=== PATIENT | male | born 1960 | race Caucasian/White ===

== ENCOUNTER 2016-05-27 07:13 | Day surgery (SDC) | payer BC ==
--- NOTE | 2016-05-27 06:42 | History and Physical Report ---
DATE OF EVALUATION: 05/27/2016. CHIEF COMPLAINT AND HISTORY OF CHIEF COMPLAINT: This patient presents with a history of intractable cervical radiculitis. Due to the failure of all therapies and the lack of surgical options after surgical evaluation suggested no surgery, he is here for an implanted spinal catheter infusion trial with hydromorphone to determine if the implantation of a permanent system can be of any value in pain control. PAST MEDICAL HISTORY: Parkinson's disease, headaches. REVIEW OF SYSTEMS: The patient seems appropriate and in no acute distress. The remainder of the systems review shows glasses, degenerative arthritis, fibromyalgia, depression, difficulty sleeping. SOCIAL HISTORY: Caffeine. FAMILY HISTORY: Asthma, hypertension, cancer, cerebrovascular disease. PAST SURGICAL HISTORY: None listed. EMPLOYMENT STATUS: Not identified. ALLERGIES: None. MEDICATIONS ON ADMISSION: To be provided. PHYSICAL EXAMINATION: General: Height is 5 feet, 7 inches. Weight is 135 pounds. Vital Signs: Blood pressure is 140/80. Musculoskeletal: Current examination shows the primary area of pain to be head , neck, shoulder, and arms bilaterally. Diagnostics confirm diffuse spondylosis and disc abnormalities from 3-4 to 6-7. Sensory guerra are intact. Neurologic: Cranial nerves are intact. IMPRESSION: CERVICAL RADICULITIS, ICD10 CODE M54.13. PLANS: This patient is here for an implanted spinal catheter infusion trial with hydromorphone to determine if the implantation of a permanent system can be of any value in pain control. The potential risks, side effects, and complications, including spinal trauma injury, nerve root injury, and spinal headache, have all been discussed and reviewed in detail. The patient understands all of the potential risks, side effects, and complications and has agreed and consented. The procedure will be considered outpatient, although an overnight stay will be evaluated. An epidural blood patch will be necessary. Jared Figueroa D.O. Date Time JOB NUMBER: [id number] cc: Jose Contreras
[~2016-05-27 07:13] MED LIST: ACETAMINOPHEN 1000MG/100 ML PREMIX IV ONE; CEFAZOLIN 2 Gram 50 ML IVPB ONE; FAMOTIDINE 20MG TABLET PO ONE; HYDROMORPHONE HCL IV ONE; HYDROMORPHONE HCL/PF 0.002 MG in 0.9 % SODIUM CHLORIDE 10ML VIA 0.998 ML IV ONE; MECLIZINE 25 MG TABLET PO ONE; METOCLOPRAMIDE 10 MG TABLET PO ONE; SODIUM CHLORIDE 0.9% IV ONE
[2016-05-27] MEDS ORDERED: METOCLOPRAMIDE HCL 10 MG/2 ML VIAL IVP PRN (10:34)
[2016-05-27] MEDS ORDERED: DIPHENHYDRAMINE HCL IV 50 MG/ML VIAL IVP PRN ×2 (10:34)
[2016-05-27] MEDS ORDERED: OXYCODONE/APAP 10MG-325MG TABLET PO PRN (10:34)
[2016-05-27] MEDS ORDERED: HYDROMORPHONE HCL 1 MG/ML CPJ IM PRN (10:34)
[2016-05-27] MEDS ORDERED: DIPHENHYDRAMINE HCL 25 MG CAPSULE PO PRN ×2 (10:34)
[2016-05-27] MEDS ORDERED: METOCLOPRAMIDE 10 MG TABLET PO PRN (10:34)
[2016-05-27] MEDS ORDERED: HYDROCODONE/APAP 7.5/325MG TABLET PO PRN ×2 (10:34)
[2016-05-27] MEDS ORDERED: AL HYDROX/MAG HYDROX 30ML UD PO PRN (10:34)
[2016-05-27] MEDS ORDERED: TEMAZEPAM 15 MG CAPSULE PO PRN ×2 (10:34)
[2016-05-27] MEDS ORDERED: SENNOSIDES/DOCUSATE SODIUM UD CAPSULE PO PRN ×2 (10:34)
[2016-05-27] MEDS ORDERED: NALOXONE 0.4 MG/1 ML VIAL IVP PRN (10:34)
[2016-05-27] MEDS ORDERED: ACETAMINOPHEN 325 MG TAB PO PRN ×2 (10:34)
[2016-05-27] MEDS ORDERED: PROPOFOL 10 MG/ML VIAL IV ONE (14:00)
[2016-05-27] MEDS ORDERED: LABETALOL HCL 5MG/ML, 20ML VIAL SIVP ONE (14:00)
[2016-05-27] MEDS ORDERED: MIDAZOLAM HCL 2MG/2ML VIAL IV ONE (14:00)
[2016-05-27] MEDS ORDERED: DEXAMETHASONE 4 MG/ML 1ML VIAL IVP ONE (14:00)
[2016-05-27] MEDS ORDERED: LIDOCAINE 1% W/EPI 1:200,000 MPF 30ML SQ ONE ×2 (14:00)
[2016-05-27] MEDS ORDERED: KETAMINE HCL 10 MG/ML (20ML) VIAL *PACU IV ONE (14:00)
[2016-05-27] MEDS ORDERED: LIDOCAINE 2% MDV (20MG/ML) 20ML VIAL IV ONE (14:00)
[2016-05-27] MEDS ORDERED: CEFAZOLIN 1G VIAL IM ONE (14:00)
[2016-05-27] MEDS ORDERED: HYDROMORPHONE HCL 2 MG/ML VIAL IV ONE ×3 (14:00)
[2016-05-27] MEDS ORDERED: BUPIVACAINE 0.5% W/EPI MPF 30 ML VIAL IVP ONE ×2 (14:00)
[2016-05-27] MEDS ORDERED: METOPROLOL TART 5 MG/5 ML VIAL IV ONE (14:00)
[2016-05-27] MEDS ORDERED: FENTANYL PF 100MCG/2ML VIAL IV ONE ×3 (14:00)
[2016-05-27] MEDS: RINGERS SOLUTION,LACTATED 1,000 ML IV SCH ×2 (14:21→20:19)
[2016-05-27] MEDS: SUCRALFATE 1 G/10 ML UD PO SCH ×2 (14:22→17:24)
[2016-05-27] MEDS: OXYCODONE/APAP 10MG-325MG TABLET PO PRN ×2 (16:11→20:15)
[2016-05-27] MEDS: CEFAZOLIN 2 Gram 50 ML IVPB SCH (16:31)
--- NOTE | 2016-05-27 17:22 | Operative Note ---
PAIN SERVICE OPERATIVE REPORT DATE OF PROCEDURE: 05/27/2016. SURGEON: Jared Figueroa D.O. PREOPERATIVE DIAGNOSIS: INTRACTABLE CERVICAL RADICULITIS, ICD10 CODE M54.13. PROCEDURE: 1. Fluoroscopically guided access spinal space at L1-2, placement of thin- walled spinal catheter at C6-7. 2. Diagnostic myelography with radiologic supervision and interpretation. 3. Spinal opioid bolus of hydromorphone 0.002 mg, spinal space. 4. Incision, subcutaneous dissection, and anchoring of spinal catheter to the supraspinous fascia using anchoring device and nonabsorbable suture. 5. Incision, subcutaneous dissection, and creation of small pouch at left flank. 6. Tunneling of spinal catheter to flank pouch. Revise and intersect catheter to second catheter component with connector. Secondary catheter component tunneled superior 6.0 cm exiting skin. 7. Interface external catheter to external infusion pump set to deliver hydromorphone at 0.04 mg per day. 8. Closure of midline spinal catheter incision with Vicryl for the fascia and running subcuticular Vicryl for the skin. Closure of flank incision with nylon suture. 9. Epidural blood patch at L2-3, 20 mL of autologous blood drawn with sterile technique, left antecubital. 10. Dressings placed, securing catheter and all connections under sterile dressing. 11. The patient was transported to the recovery room flat with a pillow under the head and knees, stable, showing no side effects from the procedure or the sedation. ANESTHESIA: Local sedation. ANESTHESIA PROVIDER: Jay Stout CRNA. INDICATIONS: This patient presents with a history of intractable cervical radiculitis. His diagnostic studies show extensive and diffuse multilevel spondylosis and disc abnormalities. Surgical evaluation had indicated the abnormalities are too extensive for surgical intervention. He has had pain clinic treatments at multiple locations and had some issues relative to medications. Due to the failure of all therapies and other related complications from treatment, he is here for an intraspinal infusion trial with hydromorphone with a cervically placed catheter. He understands all of the potential risks, side effects, and complications including spinal headache and nerve root trauma. DESCRIPTION OF PROCEDURE: Intravenous line, vital sign monitoring by Anesthesia with the patient prone on the table. Sterile prep and sterile technique and under imaging. Due to extensive spurring and arthritic change, access to the spinal space was limited to 12-1 or 1-2. At 1-2, the lowest option, the skin was infiltrated. A 20-gauge spinal needle with a paramedian approach and a beveled long axis was inserted into the spinal space. With cerebrospinal fluid flow, a thin-walled spinal catheter was advanced. The initial catheter motion appeared to be slightly inferior and to the right. The catheter was retracted. The needle was slightly retracted and then reinserted and directed along the midline to C6-7. Diagnostic myelography was performed. The resulting flow characteristics confirmed appropriate flow characteristics in the spinal space and confirmed the catheter tip position. A bolus of hydromorphone 0.002 mg was given into the spinal space. The skin above the level of the needle was infiltrated. An incision was made and subcutaneous dissection was conducted to the supraspinous fascia. The needle was removed and the catheter was anchored to the fascia with an anchoring device and nonabsorbable suture. A small pouch left of the midline was then infiltrated with local. An incision was made and subcutaneous dissection was conducted to form a pouch. A tunneling tool was used to carry the external part of the spinal catheter into the flank pouch. The spinal catheter was then interfaced with a second catheter component by way of a connector. The second catheter component was tunneled superior, approximately 6.0 cm above this flank pouch. The externalized catheter was interfaced to an external pump and set to deliver hydromorphone at 0.04 mg per day. The midline spinal catheter incision was closed with Vicryl with a running subcuticular Dermabond closure. The flank incision was closed with nylon suture. Appropriate dressings were placed securing the incisions, catheter, and all connections under sterile dressing. At L2-3, which was a difficult access point , with an 18-gauge Tuohy needle, this was then accessed. Simultaneously 20 mL of autologous blood was drawn by sterile technique from the left antecubital. The epidural blood patch was then performed at this level with this blood. The needle was removed. The site was reinforced. The dressing was reinforced. He was turned supine, flat, and transported out of the room with a pillow under the head and knees. He was stable, showing no side effects from the procedure. We will monitor and evaluate and at some point consider a possible overnight stay or discharge. DISCHARGE INSTRUCTIONS: 1. The patient is to resume standard medications, reducing analgesics as tolerated. Take an antibiotic with Levaquin 500 mg once a day for 14 days. 2. Diet is unchanged. 3. Spinal opioid side effects including respiratory depression, nausea, vomiting, constipation, urinary retention, lightheadedness, and rash were all discussed and reviewed. If these happen, contact the clinic or go to the local emergency room. 4. The patient will be seen in the office in three to five days to evaluate the sites and possibly increase the spinal infusion. 5. All other instructions were provided including numbers to contact and problems given. At that point the patient will be discharged in the morning. Jared Figueroa D.O. Date Time JOB NUMBER: [id number] cc: Jose Contreras
--- NOTE | 2016-05-27 19:31 | Operative Note ---
PAIN SERVICE OPERATIVE REPORT DATE OF PROCEDURE: 05/27/2016. PREOPERATIVE DIAGNOSES: 1. INTRACTABLE LUMBAR RADICULITIS. 2. IMPLANTED SPINAL CATHETER INFUSION TRIAL WITH HYDROMORPHONE WITH NERVE ROOT IRRITATION, LEFT ILIOINGUINAL. PROCEDURES: 1. Fluoroscopically guided incision, subcutaneous dissection, and removal of indwelling spinal catheter. 2. Incision, subcutaneous dissection, and removal of externalized catheter interfaced to pump. SURGEON: Jared Figueroa D.O. ANESTHESIA: Local sedation. ANESTHESIA PROVIDER: Jay Stout CRNA INDICATIONS: This is a patient with an implanted spinal catheter infusion trial started within the last four hours. Although intraoperatively he appeared to be fine, postoperatively in the recovery room he developed a left ilioinguinal pain pattern which was quite intense. He was given intravenous corticosteroid and intravenous opioids with little control. He showed no lower extremity involvement and moved his extremities bilaterally freely and easily. The pain appeared to be ilioinguinal. Because the insertion was at L1-2 with the proximity to the ilioinguinal nerve component at L1, it was felt that this could be a high probability nerve root irritation. For that reason, it was felt appropriate to remove the catheter and to treat him medically until stable and then re-evaluate a repeat procedure. DESCRIPTION OF PROCEDURE: Intravenous line, vital sign monitoring, and IV sedation. Prepped and draped with sterile technique. The patient was positioned prone. Under imaging, the previous incision at the midline was opened after the suture was cut. The anchor to the implanted catheter was cut. A pursestring suture was placed, and the implanted catheter was removed intact. The radiopaque tip was identified. At the left flank, a site for an externalized catheter interface, the skin was infiltrated. The suture was cut and the externalized catheter was removed intact. Antibiotic irrigation to both sites. The incisions were then closed with Vicryl to the fascia and running subcuticular Vicryl for the skin. He was transported to the recovery room stable. DISCHARGE INSTRUCTIONS: 1. The patient will remain in house overnight for pain control and management. As explained to his relative, nerve root irritations can takes days to weeks to heal. He will be medically stable and medication managed for his discharge to home. We will evaluate him over the next 24 to 48 hours. If dischargeable in the morning, he will be discharged on appropriate oral medications. 2. His sites will remain clean and dry. Dermabond dressing was used. He will be evaluated in the office in five to seven days. 3. All other instructions were provided including numbers to contact and problems given. 4. The situation was carefully explained to his relative. We will monitor and evaluate this conservatively. If necessary, an MRI will be performed to evaluate other possible sources, depending on his level of improvement or worsening symptoms, over the next 24 to 48 hours. aJred Figueroa D.O. Date Time JOB NUMBER: [id number] cc: Jose Contreras
[2016-05-27] MEDS: HYDROMORPHONE HCL 2 MG/ML VIAL IM PRN (21:22)
[2016-05-27] MEDS ORDERED: GABAPENTIN 100 MG CAPSULE PO SCH (22:00)
[2016-05-28] MEDS: CEFAZOLIN 2 Gram 50 ML IVPB SCH ×2 (00:50→08:05)
[2016-05-28] MEDS: OXYCODONE/APAP 10MG-325MG TABLET PO PRN ×3 (00:52→09:15)
[2016-05-28] MEDS: RINGERS SOLUTION,LACTATED 1,000 ML IV SCH (01:54)
[2016-05-28] MEDS: HYDROMORPHONE HCL 2 MG/ML VIAL IM PRN (06:07)
[2016-05-28] MEDS ORDERED: GABAPENTIN 100 MG CAPSULE PO SCH (08:00)
[2016-05-28] MEDS: SUCRALFATE 1 G/10 ML UD PO SCH (09:05)
--- NOTE | 2016-06-01 09:12 | RADIOLOGY REPORT ---
EXAM: AP THORACIC SPINE, SINGLE VIEW HISTORY: POST PAIN PUMP TRIAL WITH CATHETER IMPLANT. TECHNIQUE: AP supine portable view of the thoracic spine was obtained. Comparison: None. FINDINGS: There is some faint catheter like density seen overlying the left upper quadrant of the abdomen. There is probably a very faint catheter then extending up the spine and there is a tiny metallic dot at the approximate C7 level which may correspond to the superior extent of the presumed intraspinal catheter. Correlation with the specifics of the procedure itself suggested. There is some spurring noted in the spine. IMPRESSION: 1. TINY METALLIC DOT AT THE LEVEL OF THE C7 VERTEBRA PRESUMABLY CORRESPONDS TO THE SUPERIOR EXTENT OF AN INTRASPINAL CATHETER AND CLINICAL CORRELATION WITH THE PROCEDURE ITSELF SUGGESTED. 2. DEGENERATIVE CHANGE IN THE THORACIC AND UPPER LUMBAR SPINE. JOB NUMBER: [id number] [facility]
== END 2016-05-28 09:30 | disposition home or self-care (01) ==
LOC: SUR 07:13 → MEDSURG 14:11 → SUR 05-28 09:30
PROVIDERS: ATTEND Pain Medicine Interventional Pain Medicine
DX: M54.13 Radiculopathy, cervicothoracic region (principal); T85.840A Pain due to nervous system prosthetic devices, implants and grafts, initial encounter; G20 Parkinson's disease
CPT/HCPCS: 72020; 62350; 00630 ×2; 62355; Q9967; J1170 ×4; J3010; J0690; J7040; J7120

== ENCOUNTER 2016-07-15 09:23 | Day surgery (SDC) | payer BC ==
--- NOTE | 2016-07-15 07:20 | History and Physical Report ---
DATE OF EVALUATION: 07/14/2016. CHIEF COMPLAINT AND HISTORY OF CHIEF COMPLAINT: This patient presents with a history of intractable cervical radiculitis. He is here for a spinal infusion device trial with an implanted spinal catheter with hydromorphone. A previous trial on 05/27/2016 had to be discontinued because of nerve root irritation. PAST MEDICAL HISTORY: Parkinson's disease, headaches, cervical radiculitis. REVIEW OF SYSTEMS: The patient seems appropriate and in no acute distress. The remainder of the systems review shows glasses, degenerative arthritis, fibromyalgia, depression, difficulty sleeping. SOCIAL HISTORY: Caffeine. FAMILY HISTORY: Asthma, hypertension, cancer, cerebrovascular disease. PAST SURGICAL HISTORY: None identified. ALLERGIES: None. MEDICATIONS ON ADMISSION: To be provided. PHYSICAL EXAMINATION: General: Height is 5 feet, 7 inches. Weight is 121 pounds. Vital Signs: Previous blood pressure was 140/80. HEENT: Within normal limits. Lungs: Clear. Heart: Regular rate and rhythm. Abdomen: Nontender. Musculoskeletal: Examination of the musculoskeletal system shows diffuse tenderness throughout the cervical spine. Range of motion does seem to produce pain throughout the neck, shoulder, and arms bilaterally. Neurologic: Cranial nerves are intact. IMPRESSIONS: INTRACTABLE CERVICAL RADICULITIS, ICD10 CODE M54.13. PLANS: This patient is here for an implanted spinal catheter infusion trial with hydromorphone. Based on the first trial, we will modify our approach. Ultimately the goal is to position the catheter at C7-T1 for an infusion to the cervical as well as thoracic nervous system. The potential risks, side effects , and complications including repeat nerve root injury have been discussed and provided in detail. He was given the appropriate information from the housing manager which discusses all of the potential risks, side effects, and complications. The patient and his family member have been interviewed. All of the potential risks have been discussed, and everyone understands. The patient consents and wants to move forward as quickly as possible. We will consider this an overnight stay because of the history. The dural puncture and spinal catheter placement will require an epidural blood patch. Jared Figueroa D.O. Date Time JOB NUMBER: [id number] cc: Jose Contreras
[~2016-07-15 09:23] MED LIST changes: -HYDROMORPHONE HCL IV ONE; -HYDROMORPHONE HCL/PF 0.002 MG in 0.9 % SODIUM CHLORIDE 10ML VIA 0.998 ML IV ONE; +HYDROMORPHONE PF 2MG/ML AMP 0.004 MG in 0.9 % SODIUM CHLORIDE 10ML VIA 0.998 ML IV ONE; +HYDROMORPHONE PF 2MG/ML AMP 2 MG in 0.9 % SODIUM CHLORIDE 500ML 499 ML IV ONE; -SODIUM CHLORIDE 0.9% IV ONE
[2016-07-15] MEDS ORDERED: OXYCODONE/APAP 10MG-325MG TABLET PO PRN (12:45)
[2016-07-15] MEDS ORDERED: METOCLOPRAMIDE HCL 10 MG/2 ML VIAL IVP PRN (12:45)
[2016-07-15] MEDS ORDERED: DIPHENHYDRAMINE HCL IV 50 MG/ML VIAL IVP PRN ×2 (12:45)
[2016-07-15] MEDS ORDERED: AL HYDROX/MAG HYDROX 30ML UD PO PRN (12:45)
[2016-07-15] MEDS ORDERED: SENNOSIDES/DOCUSATE SODIUM UD CAPSULE PO PRN ×2 (12:45)
[2016-07-15] MEDS ORDERED: TEMAZEPAM 15 MG CAPSULE PO PRN ×2 (12:45)
[2016-07-15] MEDS ORDERED: NALOXONE 0.4 MG/1 ML VIAL IVP PRN (12:45)
[2016-07-15] MEDS ORDERED: METOCLOPRAMIDE 10 MG TABLET PO PRN (12:45)
[2016-07-15] MEDS ORDERED: HYDROCODONE/APAP 7.5/325MG TABLET PO PRN ×2 (12:45)
[2016-07-15] MEDS ORDERED: DIPHENHYDRAMINE HCL 25 MG CAPSULE PO PRN ×2 (12:45)
[2016-07-15] MEDS ORDERED: ACETAMINOPHEN 325 MG TAB PO PRN ×2 (12:45)
[2016-07-15] MEDS ORDERED: RINGERS SOLUTION,LACTATED 1,000 ML IV PRN (13:45)
[2016-07-15] MEDS ORDERED: LIDOCAINE 1% W/EPI 1:200,000 MPF 30ML SQ ONE (14:48)
[2016-07-15] MEDS ORDERED: CEFAZOLIN 1G VIAL IM ONE (14:48)
[2016-07-15] MEDS ORDERED: BUPIVACAINE 0.5% W/EPI MPF 30 ML VIAL IVP ONE (14:48)
[2016-07-15] MEDS: RINGERS SOLUTION,LACTATED 1,000 ML IV SCH (15:29)
[2016-07-15] MEDS: HYDROMORPHONE HCL 1 MG/ML CPJ IM PRN ×2 (15:41→20:44)
[2016-07-15] MEDS ORDERED: *PACU ONLY* KETAMINE HCL 10 MG/ML (20ML) VIAL IV ONE (16:13)
[2016-07-15] MEDS ORDERED: PROPOFOL 10 MG/ML VIAL IV ONE (16:13)
[2016-07-15] MEDS ORDERED: FENTANYL PF 100MCG/2ML VIAL IV ONE (16:13)
[2016-07-15] MEDS ORDERED: MIDAZOLAM HCL 2MG/2ML VIAL IV ONE (16:13)
[2016-07-15] MEDS ORDERED: DEXMEDETOMIDINE HCL 200 MCG/2 ML VIAL IV ONE (16:13)
[2016-07-15] MEDS ORDERED: DEXAMETHASONE 4 MG/ML 1ML VIAL IVP ONE (16:13)
[2016-07-15] MEDS: OXYCODONE/APAP 10MG-325MG TABLET PO PRN ×2 (18:00→22:46)
[2016-07-15] MEDS: CEFAZOLIN 2 Gram 50 ML IVPB SCH (18:00)
[2016-07-16] MEDS: RINGERS SOLUTION,LACTATED 1,000 ML IV SCH ×2 (00:16→06:37)
[2016-07-16] MEDS: HYDROMORPHONE HCL 2 MG/ML VIAL IM PRN ×2 (01:22→06:36)
[2016-07-16] MEDS: CEFAZOLIN 2 Gram 50 ML IVPB SCH ×4 (01:25→09:34)
[2016-07-16] MEDS: OXYCODONE/APAP 10MG-325MG TABLET PO PRN ×2 (04:06→08:42)
--- NOTE | 2016-07-18 09:18 | Operative Note - [place] ---
DATE OF SURGERY: 07/15/16 PREOPERATIVE DIAGNOSIS: CERVICAL RADICULITIS, ICD-10 CODE = M54.13. OPERATION: 1. FLUOROSCOPICALLY-GUIDED ACCESS SPINAL SPACE AT L1/2, PLACEMENT OF THIN- WALLED SPINAL CATHETER C7/T1. 2. DIAGNOSTIC MYELOGRAPHY WITH RADIOLOGIC SUPERVISION AND INTERPRETATION. 3. SPINAL OPIOID BOLUS HYDROMORPHONE 0.002 MG SPINAL SPACE. 4. INCISION, SUBCUTANEOUS DISSECTION, AND ANCHORING OF SPINAL CATHETER TO SUPRASPINOUS FASCIA USING ANCHORING DEVICE AND NONABSORBABLE SUTURE. 5. INCISION, SUBCUTANEOUS DISSECTION, AND CREATION OF A SUBCUTANEOUS POUCH, RIGHT POSTERIOR GLUTEAL MARGIN. 6. TUNNELING BETWEEN MIDLINE POUCH TO POSTERIOR POUCH EXTENDING INDWELLING SPINAL CATHETER INTO FLANK POUCH. 7. INTERFACE SPINAL CATHETER TO SECOND CATHETER COMPONENT BY WAY OF CONNECTOR - RESECTION. 8. TUNNELING SECOND CATHETER COMPONENT SUPERIOR EXITING SKIN 6 CM. INTERFACE EXTERNAL INFUSION DEVICE SET TO DELIVER HYDROMORPHONE AT 0.04 MG PER DAY. 9. CLOSURE OF MIDLINE INCISION, VICRYL FOR FASCIA, AND RUNNING SUBCUTICULAR VICRYL FOR SKIN. DERMABOND CLOSURE. CLOSURE OF RIGHT FLANK POUCH USING NYLON SUTURE. 10. STERILE DRESSING PLACED SECURING CATHETER AND ALL CONNECTIONS UNDER STERILE DRESSING. 11. EPIDURAL BLOOD PATCH AT L2/3, 20 ML AUTOLOGOUS BLOOD DRAWN STERILE TECHNIQUE , LEFT ANTECUBITAL. SURGEON: JOELLE COBURN D.O. ANESTHESIA: LOCAL SEDATION. ANESTHESIA PROVIDER: PARK REGAN CRNA. INDICATION: This patient presents with intractable cervical radiculitis complicated by trauma and surgical stabilization of the left shoulder and arm. A previous spinal opioid infusion trial had to be aborted because of nerve root irritation. He is here for repeat by his request. PROCEDURE: Intravenous line, vital sign monitoring, IV sedation, prepped and draped in sterile technique. A lower spinal access at L1/2 was marked, infiltrated, and using a 20-gauge spinal needle beveled with a long axis in a paramedian approach, the spinal space was accessed. A thin-walled spinal catheter was then advanced under imaging to C7/T1. Diagnostic myelography showed appropriate flow characteristics and confirmation of position. 1 mL of Hydromorphone 0.002 mg was given into the spinal space. The skin above and below the needle was infiltrated, incision made, and subcutaneous dissection was conducted to the fascia. The needle was removed and the catheter was anchored to the supraspinous fascia using an anchoring device and nonabsorbable suture. At the right flank where the site picked by the patient ultimately for the pump placement, skin infiltrated, incision made, and subcutaneous dissection was conducted to form a small pouch. The midline spinal catheter was then tunneled into the flank posterior pouch and this catheter was resected and interfaced with a second catheter component by way of a connector. The second catheter component was tunneled 6 cm above this site and the exited the skin. The external catheter was interfaced to an infusion pump, which was set to deliver Hydromorphone at 0.04 mg a day. The midline incision was closed with Vicryl for fascia and running subcuticular Vicryl for skin. The flank pouch was closed with nylon suture. Dressings were placed securing the catheter and connections under sterile dressing. At L2/3, one level below the dural puncture , skin infiltrated and an 18-gauge Tuohy needle with [id number] into the epidural space. Simultaneously, 20 mL of autologous blood drawn sterile technique from the left antecubital. This blood was placed onto the field maintaining sterility and then the epidural blood patch was performed at this level with this blood. Needle removed. The dressing was reinforced. He was transported to the Recovery Room stable, flat, pillow under head and knees showing no side-effects from the procedure and no indication of nerve root irritation. He will stay flat for four hours, slowly elevated for one. Because of his history, he will stay overnight for observation and be discharged in the morning. DISCHARGE INSTRUCTIONS IN THE MORNIN. The sites will remain clean and dry. No showering or bathing in any way that disrupts dressing. If it happens, contact the clinic. 2. Standard medications resumed including the antibiotic, Levaquin, 500 mg once a day for 14 days. 3. Spinal opioid side-effects including; respiratory depression, nausea, vomiting, constipation, urinary retention, lightheadedness, or rash have all been discussed and reviewed. All other instructions provided, numbers to contact , problems given. He will be discharged in the morning. Spinal opioid side- effects again have been reviewed carefully with the patient and family. JOELLE COBURN D.O. Date & Time cc: Young Traore M.D. JOB NUMBER: [id number] MTDD
--- NOTE | 2016-07-21 12:59 | RADIOLOGY REPORT ---
EXAM: AP THORACIC SPINE HISTORY: POST PAIN PUMP PLACEMENT. TECHNIQUE: A single AP portable view of the thoracic spine was obtained. Comparison: Thoracic spine film 05/27/16. FINDINGS: On the previous examination there was a tiny metallic dot like density at the C7 level thought to likely represent the superior extent of an intraspinal catheter. A similar tiny metallic density is seen at the C7 level today, again presumably the superior extent of an intraspinal catheter. Correlation with the procedure itself is suggested. IMPRESSION: TINY METALLIC DENSITY OVER THE C7 VERTEBRA PRESUMABLY REPRESENTING THE SUPERIOR EXTENT OF AN INTRASPINAL CATHETER DESCRIBED ABOVE. JOB NUMBER: [id number] MTDD
== END 2016-07-16 10:20 | disposition home or self-care (01) ==
LOC: SUR 09:23 → MEDSURG 12:54 → SUR 07-16 10:20
PROVIDERS: ATTEND Pain Medicine Interventional Pain Medicine
DX: M54.13 Radiculopathy, cervicothoracic region (principal); G20 Parkinson's disease
CPT/HCPCS: 62350; 00630; 72020; 94761; 94760; Q9967; J3010; J1170 ×3; J0690 ×2; J3490; J7040; J7120

== ENCOUNTER 2016-07-29 10:30 | Day surgery (SDC) | payer BC ==
--- NOTE | 2016-07-29 06:43 | History and Physical Report ---
DATE OF EVALUATION: 07/28/2016. CHIEF COMPLAINT AND HISTORY OF CHIEF COMPLAINT: This patient was last seen for an implanted spinal catheter on 07/14/2016. He is here for a permanent implant. His history is of an intractable lumbar radiculitis with an infusion trial ongoing. PAST MEDICAL HISTORY: Unchanged. REVIEW OF SYSTEMS: Unchanged. SOCIAL HISTORY: Unchanged. FAMILY HISTORY: Unchanged. PAST SURGICAL HISTORY: Unchanged. ALLERGIES: Unchanged. MEDICATIONS ON ADMISSION: Unchanged. PHYSICAL EXAMINATION: General: Height is 5 feet, 7 inches. Weight is 120 pounds. Vital Signs Previously: Blood pressure was 140/80. HEENT: Unchanged. Lungs: Unchanged. Heart: Unchanged. Abdomen: Unchanged. Musculoskeletal: Unchanged except for the dressings enclosing the implanted spinal catheter infusion trial. Ambulation: Unchanged. Neurologic: Unchanged. IMPRESSIONS: 1. INTRACTABLE CERVICAL RADICULITIS, ICD10 CODE M54.13. 2. IMPLANTED SPINAL CATHETER INFUSION TRIAL WITH HYDROMORPHONE. PLANS: The patient is here for permanent implantation after a successful implanted catheter trial. The procedure will be considered potentially outpatient, although an overnight stay will be evaluated. The potential risks, side effects, and complications have been reviewed. The patient has agreed and consented. Jared Figueroa D.O. Date Time JOB NUMBER: [id number] cc: Jose Contreras
[~2016-07-29 10:30] MED LIST changes: +HYDROMORPHONE HCL 0.02 GM in 0.9 % SODIUM CHLORIDE 10ML VIA 20 ML IV ONE; +HYDROMORPHONE HCL/PF 0.002 MG in 0.9 % SODIUM CHLORIDE 10ML VIA 0.998 ML IVP ONE; -HYDROMORPHONE PF 2MG/ML AMP 0.004 MG in 0.9 % SODIUM CHLORIDE 10ML VIA 0.998 ML IV ONE; -HYDROMORPHONE PF 2MG/ML AMP 2 MG in 0.9 % SODIUM CHLORIDE 500ML 499 ML IV ONE
[2016-07-29] MEDS ORDERED: CEFAZOLIN 1G VIAL IM ONE (14:32)
[2016-07-29] MEDS ORDERED: MIDAZOLAM HCL 2MG/2ML VIAL IV ONE (15:22)
[2016-07-29] MEDS ORDERED: LIDOCAINE 2% MDV (20MG/ML) 20ML VIAL IV ONE (15:22)
[2016-07-29] MEDS ORDERED: FENTANYL PF 100MCG/2ML VIAL IV ONE (15:22)
[2016-07-29] MEDS ORDERED: PROPOFOL 10 MG/ML VIAL IV ONE (15:22)
[2016-07-29] MEDS ORDERED: HYDROMORPHONE HCL 2 MG/ML VIAL IV ONE (15:22)
[2016-07-29] MEDS ORDERED: BUPIVACAINE 0.5% W/EPI MPF 30 ML VIAL IVP ONE (15:45)
[2016-07-29] MEDS ORDERED: LIDOCAINE 1% W/EPI 1:200,000 MPF 30ML SQ ONE (15:45)
--- NOTE | 2016-07-29 16:16 | Operative Note - [place] ---
DATE OF SURGERY: 07/29/16 PREOPERATIVE DIAGNOSES: 1. CERVICAL RADICULITIS, ICD10 CODE M54.13. 2. IMPLANTED SPINAL CATHETER INFUSION SYSTEM WITH HYDROMORPHONE. OPERATION: 1. INCISION, SUBCUTANEOUS DISSECTION, AND REMOVAL OF EXTERNAL SPINAL CATHETER. 2. INCISION, SUBCUTANEOUS DISSECTION, AND REVISION INDWELLING SPINAL CATHETER WITH SECOND CATHETER COMPONENT FOR PUMP BY WAY OF CONNECTOR. 3. INCISION, SUBCUTANEOUS DISSECTION, AND CREATION OF SUBCUTANEOUS POUCH AT RIGHT POSTERIOR GLUTEAL MARGIN FOR PLACEMENT OF PUMP IDENTIFIED A MEDTRONIC 20 ML PROGRAMMABLE. 4. INTERSECTION AND INTERFACE REVISED CATHETER TO PUMP, PLACEMENT OF PUMP INTO POUCH SECURING TO POSTERIOR FASCIA USING NONABSORBABLE SUTURE TWO POINTS PUMP EYELETS. 5. ASPIRATION 1 ML SPINAL CATHETER CONTENTS CLEARING CATHETER OF OPIOID AND CSF MIXTURE. 6. DIAGNOSTIC MYELOGRAPHY WITH RADIOLOGIC SUPERVISION AND INTERPRETATION DEMONSTRATING APPROPRIATE CATHETER POSITION C7. FLOW CHARACTERISTICS APPROPRIATE TO THE SPACE. 7. CLOSURE OF INCISIONS, VICRYL FOR FASCIA, RUNNING SUBCUTICULAR VICRYL FOR SKIN , DERMABOND CLOSURE. 8. PROGRAMMING OF PUMP TO DELIVER BY CONTINUOUS INFUSION HYDROMORPHONE AT 0.16 MG PER DAY. SURGEON: JOELLE COBURN D.O. ANESTHESIA: LOCAL SEDATION. ANESTHESIA PROVIDER: PORFIRIO OBRIEN CRNA INDICATION: This patient presents with a history of intractable cervical radiculitis. An implanted spinal infusion system with Hydromorphone, catheter tip C7, with 75-plus percent pain control. Due to the failure of all therapies and the success of the ongoing trial, he is here for implantation of a permanent system by his request. The potential risk, side-effects, complications have all been carefully reviewed and discussed. PROCEDURE: Intravenous line, vital sign monitoring, IV sedation. Prepped and draped in sterile technique. Patient position prone. The dressings holding the external catheter were then removed. The external catheter identified under imaging. The previous pouch at the right posterior gluteal margin infiltrated with local, incision made, and subcutaneous dissection was conducted to the interface between the external and internal catheter connection, cut the external catheter, removed intact. The internal catheter was then revised and interfaced with the second catheter component by way of a connector. Subcutaneous dissection was conducted to form a pouch of suitable size and depth for the pump identified as Medtronic Programmable 20 mL. The revised catheter was interfaced to the pump, pre-filled with Hydromorphone at 0.2 mg per mL. The pump was then placed into the pouch, secured to the posterior fascia using a nonabsorbable suture at two point pump eyelets. Antibiotic irrigation. Bovie for hemostasis. A 24-gauge [place] needle was then inserted into access port and 1 mL of catheter contents was aspirated clearing the catheter of opioid and CSF mixture. Diagnostic myelography was then performed; the resulting flow characteristics were smooth and linear within the space, tip of the catheter confirmed C7 as the original placement site. The contrast study showed appropriate myelogram flow characteristics. The incision was then closed Vicryl for fascia, running subcuticular Vicryl for skin. A Dermabond closure system was then used to approximate the edges of the wound. The pump was then programmed to deliver by continuous infusion Hydromorphone at 0.16 mg per day. He was transported to the Recovery Room, stable, showing no side-effects from the procedure or the sedation. Monitored until stable. DISCHARGE INSTRUCTIONS: 1. The sites will remain clean and dry. No showering or bathing in any way that would disrupt dressings. If it happens, contact the clinic. 2. Standard medications resumed including the antibiotic, Levaquin, 500 mg once a day for 14 days. 3. His activities to remain low for the next 3-5 days. He will be seen in the office in 5-7 days at which point we will clear him for further activities. The antibiotic, Levaquin, 500 mg for 14 days will be continued as previously started for the trial. Standard medications including his analgesic were restarted but slowly titrated down if possible. All other instructions were provided, numbers to contact, problems given. He was then discharged. JOELLE COBURN D.O. Date & Time cc: Dr. Young Traore JOB NUMBER: [id number] MTDD
--- NOTE | 2016-08-04 07:39 | RADIOLOGY REPORT ---
EXAM: THORACOLUMBAR SPINE, AP PROJECTION HISTORY: STATUS POST PUMP IMPLANT. TECHNIQUE: AP view of the thoracic and lumbar spine were provided. Comparison study dated 07/29/16 is provided. FINDINGS: The bilateral pedicles and posterior spinous processes of the thoracic and lumbar spine appear within normal limits. Vacuum disk phenomenon is noted at the T11-T12 disk space level. These findings suggest degenerative disk disease. The visualized heart size and contours are within normal limits. Tortuosity of the thoracic aorta is noted. There is no radiographic evidence of a focal infiltrate or pleural effusion. The bowel gas pattern is nonspecific and nonobstructive. There is an epidural pain pump identified within the right side of the abdomen. The lead is identified following the course of the thoracic spine. The distal tip of the lead is identified in the region of the T1 vertebral body. IMPRESSION: EPIDURAL PAIN PUMP IS IDENTIFIED DESCRIBED. DEGENERATIVE CHANGES OF THE THORACOLUMBAR SPINE ARE NOTED. JOB NUMBER: [id number] MTDD
== END 2016-07-29 13:35 | disposition home or self-care (01) ==
LOC: SUR 10:30
PROVIDERS: ATTEND Pain Medicine Interventional Pain Medicine
DX: M54.12 Radiculopathy, cervical region (principal)
CPT/HCPCS: 62350; 62362; 00630; 62367; 72020; Q9967; J1170 ×2; J3010; J0690; C1755

== ENCOUNTER 2018-01-21 11:21 | Emergency (ER) | payer BC, MEDICAID ==
--- NOTE | 2018-01-21 11:49 | Emergency Department Record ---
History of Present Illness - General Chief Complaint: Back Pain/Injury Stated Complaint: PAIN WHERE PAIN PUMP IMPLANTED Time Seen by Provider: 01/21/18 11:30 Source: Patient, Family Limitations: No limitations - History of Present Illness Initial Comments: 57 yo male presents with pain for one week at site of prior pain pump placement 1.5 years ago. The pain is thin. When he puts weight on the area he experiences pain. There has been no fever, redness, skin changes, chills, warmth, weakness of the area or leg. If he rolls over on the area it hurts. He has chronic pain from degenerative issues and trauma. Dr Figueroa place the unit. He states he has been calling for two days without call backs from the office. MD Complaint: Back pain, Other (Pain for one week at site of prior pain pump placement 1.5 years ago.) Onset/Timin -: Days(s) Similar Symptoms Previously: Yes Radiation: Buttocks Severity scale (1-10): 8 Quality: Sharp Consistency: Constant Context: Other Associated Symptoms: Difficulty walking Treatments Prior to Arrival: Prescription analgesics Treatment Prior to Arrival Comment:: 5- lidocain epatches currently on. - Related Data Home Medications Medication Instructions Recorded Confirmed Last Taken Aspirin [Aspir-Low] 81 mg PO DAILY 01/21/18 01/21/18 01/21/18 Ibuprofen [Motrin 400Mg] 400 mg PO Q8H PRN 01/21/18 01/21/18 01/21/18 Lidocaine Patch [Lidoderm] 1 ea TOP DAILY 01/21/18 01/21/18 01/21/18 Previous Rx's Medication Instructions Recorded Cyclobenzaprine HCl [Flexeril] 10 mg PO TID #21 tablet 01/21/18 Allergies Allergy/AdvReac Type Severity Reaction Status Date / Time No Known Drug Allergies Allergy Verified 05/13/16 13:48 Travel Screening - Travel/Exposure Within Last 30 Days Have you traveled within the last 30 days?: No - Travel/Exposure Within Last Year Have you traveled outside the [place] in the last year?: No - Additonal Travel Details Have you been exposed to anyone with a communicable illness?: No - Travel Symptoms Symptom Screening: None Review of Systems Constitutional: Denies: Chills, Fever, Malaise, Weakness Eyes: Denies: Eye discharge ENT: Denies: Congestion, Throat pain Respiratory: Denies: Cough, Dyspnea, Hemoptysis, Stridor, Wheezes Cardiovascular: Denies: Chest pain, Edema (No right leg swelling), Palpitations , Syncope Endocrine: Denies: Fatigue Gastrointestinal: Denies: Abdominal pain, Diarrhea, Nausea, Vomiting Genitourinary: Denies: Dysuria, Frequency Musculoskeletal: Reports: Arthralgia, Back pain, Myalgia Skin: Reports: Other (No warmth or redness). Denies: Bruising, Change in color , Rash Neurological: Reports: Tingling (tingles over the site, not down the leg). Denies: Abnormal gait, Confusion, Numbness, Seizure, Tremors, Vertigo, Weakness Psychiatric: Denies: Anxiety Hematological/Lymphatic: Denies: Blood Clots, Easy bleeding, Easy bruising Past Medical History - SOCIAL HISTORY Smoking Status: Former smoker Alcohol Use: None Drug Use: None - RESPIRATORY Hx Respiratory Disorders: No - CARDIOVASCULAR Hx Cardio Disorders: No - NEURO Hx Neuro Disorders: Yes Hx Headaches: Yes (DAILY HAS HAD TREATMENT IN ED MANY TIMES FOR THIS) Hx Parkinson's Disease: Yes (POSSIBLE BUT HAS NOT SEEN ANYONE YET) - GI Hx GI Disorders: Yes Hx Ulcer: Yes (BLEEDING ULCER 1 YR AGO) - Hx Genitourinary Disorders: Yes Hx Kidney Stones: Yes - ENDOCRINE Hx Endocrine Disorders: No - MUSCULOSKELETAL Hx Musculoskeletal Disorders: Yes Hx Arthritis: Yes (DDD) - PSYCH Hx Psych Problems: Yes Hx Depression: Yes (SINCE HE LOST HIS DAD 1 YR AGO NOT ON MEDS) - HEMATOLOGY/ONCOLOGY Hx Hematology/Oncology Disorders: Yes Hx Blood Transfusions: Yes (AFTER HEAD LACERATON) Family Medical History Any Significant Family History?: No Family Hx Comment (NOT TO BE USED IN PLACE OF ITEMS BELOW): FATHER HX [place] AND BRAIN BLEED Hx Anxiety: Mother Hx Dementia: Father Hx Depression: Father Hx Diabetes: Grandparents Hx Heart Disease: Father Physical Exam - General General Appearance: Alert, Oriented x3, Cooperative, No acute distress Limitations: No limitations - Head Head exam: Atraumatic, Normal inspection - Eye Eye exam: Normal appearance, PERRL. negative: Conjunctival injection - ENT ENT exam: Normal exam Ear exam: Normal external inspection Nasal Exam: Normal inspection Mouth exam: Normal external inspection - Neck Neck exam: Normal inspection - Respiratory Respiratory exam: Normal lung sounds bilaterally. negative: Respiratory distress - Cardiovascular Cardiovascular Exam: Regular rate, Normal rhythm, Normal heart sounds Peripheral Pulses: 2+: Dorsalis Pedis (R) - GI/Abdominal GI/Abdominal exam: Soft. negative: Tenderness - Rectal Rectal exam: Deferred - exam: Deferred - Extremities Extremities exam: Normal inspection, Full ROM, Normal capillary refill, Tenderness. negative: Calf tenderness, Joint swelling, Pedal edema, Other Image of Full Body: 1 - site of pump, no warm, redness, skin changes, NO sign of swelling, inflection or acute or chronic abnormality. The area is tender inferior to the device. - Back Back exam: Reports: Normal inspection - Neurological Neurological exam: Alert, Oriented X3, Reflexes normal, Other (Strong foot flexion and extension, EHL intact, no calf pain or swelling). negative: Altered , Motor sensory deficit (No weakness of the quads, hamstrings, or calf with muscle testing, ) - Psychiatric Psychiatric exam: Normal affect, Normal mood. negative: Agitated, Anxious - Skin Skin exam: Dry, Intact, Normal color, Warm. negative: Diaphoretic, Erythema Course Vital Signs 01/21/18 11:26 Temperature 98.8 F Pulse Rate 99 H Respiratory 16 Rate Blood Pressure 132/86 Pulse Ox 95 - Reevaluation(s) Reevaluation #1: 01/21/18 13:04 No acute findings on the XR DC to follow up with his pain specialist. Disposition Disposition: Discharge Clinical Impression: Hip pain, right Disposition: Home, Self-Care Condition: (1) Good Instructions: Arthralgia (ED) Additional Instructions: Call your doctors for close follow up this next week Return if you have fever, redness, swelling, or any new concerns Prescriptions: Cyclobenzaprine HCl [Flexeril] 10 mg PO TID #21 tablet Forms: Patient Portal Access Time of Disposition: 13:05 Quality - Quality Measures Quality Measures: N/A - Blood Pressure Screening Does Patient Have Any of the Following: No Blood Pressure Classification: Pre-Hypertensive BP Reading Systolic Measurement: 132 Diastolic Measurement: 86 Screening for High Blood Pressure: < Pre-Hypertensive BP, F/U Documented > [ [id number]] Pre-Hypertensive Follow-up Interventions: Referral to alternative/primary care provider.
[2018-01-21] MEDS ORDERED: HYDROMORPHONE HCL 2 MG/ML VIAL IM ONE (11:50)
--- NOTE | 2018-01-23 22:49 | RADIOLOGY REPORT ---
EXAM: HIP,UNILAT, 2-3 VIEW RIGHT HISTORY: WORSENING RIGHT HIP PAIN EXTENDING INTO LOWER EXTREMITY. PAIN PUMP IMPLANT. TECHNIQUE: An AP view of the pelvis is obtained as well as AP and frog-leg lateral views of the right hip. COMPARISON: Single view spine dated 07/29/2016. ENCOUNTER: Initial. FINDINGS: There is normal bone mineralization. No fracture, dislocation, or destructive bone lesion is seen. Early degenerative changes of the hip joints questioned medially. No periarticular erosion. The sacroiliac joints are maintained. Mild degenerative changes are noted within the visualized lower lumbar spine. An intraspinal catheter remains in place, incompletely imaged. It is connected to a mechanical/electronic pump in the right gluteal region. IMPRESSION: 1. NO ACUTE BONE NOR JOINT ABNORMALITY. 2. EARLY OSTEOARTHRITIC CHANGES OF THE HIPS. JOB NUMBER: [id number] MTDD
== END 2018-01-21 13:15 | disposition home or self-care (01) ==
LOC: ER 11:21
DX: M25.551 Pain in right hip (principal); M51.36 Other intervertebral disc degeneration, lumbar region; R26.2 Difficulty in walking, not elsewhere classified; Z96.9 Presence of functional implant, unspecified; Z87.891 Personal history of nicotine dependence
CPT/HCPCS: 99283; 96372; 99284; 73502; J1170